=== PATIENT | male | born 1965 | race African-American/Black ===

== ENCOUNTER 2022-05-07 23:17 | Inpatient (IN) | payer OTHER ==
[~2022-05-07] VITALS: Ht 172.7 cm; Wt 90.7 kg
[2022-05-08] MEDS ORDERED: ONDANSETRON HCL/PF 4 MG/2 ML VIAL IVP ONE
[2022-05-08] MEDS ORDERED: VANCOMYCIN 1 GM in IV D5W 250 ML IV ONE ×2
[2022-05-08] MEDS ORDERED: IV NS 0.9% 1,000 ML BAG IV ONE
[2022-05-08] MEDS ORDERED: MORPHINE SULFATE INJ 2 MG/ML DISP.SYRIN IV ONE
[2022-05-08] MEDS ORDERED: ONDANSETRON HCL/PF 4 MG/2 ML VIAL ONE (00:07)
[2022-05-08] MEDS ORDERED: MORPHINE SULFATE INJ 4 MG/ML DISP.SYRIN ONE (00:07)
[2022-05-08] MEDS ORDERED: VANCOMYCIN 1 GM VIAL ONE (00:07)
--- NOTE | 2022-05-08 00:13 | NUR ---
BIBS FOR C/O L ELBOW PAIN AND SWELLING S/P LACERATION ON 05/02. PT STATES OVER THE PAST FEW DAYS HE HAS NOTICED PAIN AND SWELLING WAS WORSTENING BUT THOUGHT IT WOULD IMPROVE ON ITS OWN. ENDORSES 02/10 PAIN. ALSO REPORTS FEVER/CHILLS, AFEBRIOLE AT TRIAGE. PT PLACED ON MONITOR AND V/S WNL.
--- NOTE | 2022-05-08 00:25 | NUR ---
22g iv started at . blood collected and sent to lab
--- NOTE | 2022-05-08 00:38 | NUR ---
lashaun sent to lab
[2022-05-08 00:57] LABS: BASOPHILS # (AUTO) 0.1 K/uL (0.0-0.2); BASOPHILS % (AUTO) 0.4 % (0.0-2.0); EOSINOPHILS % (AUTO) 1.5 % (0.0-6.0); HEMATOCRIT 47 % (39-51); HEMOGLOBIN 15.7 g/dL (13.5-17.5); LYMPHOCYTES # (AUTO) 1.5 K/uL (0.8-4.8); MEAN CORPUSCULAR HGB CONC 33 g/dl (31.0-36.0); MEAN CORPUSCULAR VOLUME 93 fL (80-96); MONOCYTES % (AUTO) 6.2 % (2.0-12.0); NEUTROPHILS # (AUTO) 12.5 K/uL (1.8-8.9); NEUTROPHILS % (AUTO) 81.9 % (43.0-81.0); PLATELET COUNT (AUTO) 369 K/uL (150-450); RED BLOOD CELL COUNT(AUTO) 5.04 MIL/uL (4.5-6.0); WHITE BLOOD COUNT (AUTO) 15.3 K/uL (4.3-11.0)
[2022-05-08 01:23] LABS: ALANINE AMINOTRANSFERASE 46 U/L (12-78); ALBUMIN 3.5 g/dL (3.4-5.0); ALKALINE PHOSPHATASE 126 U/L (46-116); ASPARTATE AMINOTRANSFERASE 34 U/L (15-37); BILIRUBIN,DIRECT 0.1 mg/dL (0.0-0.2); BILIRUBIN,TOTAL 0.5 mg/dL (0.2-1.0); CALCIUM, SERUM 9.4 mg/dL (8.5-10.1); CARBON DIOXIDE 26 mmol/L (21-32); CHLORIDE 99 mmol/L (98-107); GLUCOSE 103 mg/dL (74-106); LIPASE 254 U/L (73-393); SODIUM SERUM 133 mmol/L (136-145); TOTAL PROTEIN, SERUM 8.6 g/dL (6.4-8.2); UREA NITROGEN, BLOOD 15 mg/dL (7-18)
--- NOTE | 2022-05-08 02:18 | NUR ---
SPOKE WITH LOOM STARTERCARMITA FOR CLINICALS.
[2022-05-08] MEDS ORDERED: MAG HYDROX/AL HYDROX/SIMETH 30 ML UDC PO PRN (02:30)
[2022-05-08] MEDS ORDERED: MORPHINE SULFATE INJ 2 MG/ML DISP.SYRIN IV PRN (02:30)
[2022-05-08] MEDS ORDERED: ONDANSETRON HCL/PF 4 MG/2 ML VIAL IVP PRN (02:30)
[2022-05-08] MEDS ORDERED: MAGNESIUM HYDROXIDE 30 ML UDC PO PRN (02:30)
[2022-05-08] MEDS ORDERED: ACETAMINOPHEN 325 MG TABLET PO PRN (02:30)
[2022-05-08] MEDS ORDERED: Z GUARD REMEDY 4 OZ OINT TP PRN (02:30)
[2022-05-08] MEDS ORDERED: ZOLPIDEM TARTRATE 5 MG TABLET PO PRN (02:30)
--- NOTE | 2022-05-08 05:48 | NUR ---
IV LINE GOT P[ULLED OUT. 20G IV STARTED AT [facility].
[2022-05-08] MEDS ORDERED: MORPHINE SULFATE INJ 2 MG/ML DISP.SYRIN ONE (05:49)
[2022-05-08] MEDS: PANTOPRAZOLE 40 MG TABLET.DR PO SCH (07:32)
[2022-05-08] MEDS ORDERED: PANTOPRAZOLE 40 MG TABLET.DR PO ONE (07:32)
--- NOTE | 2022-05-08 08:35 | NUR ---
ROOM 325-1
--- NOTE | 2022-05-08 08:46 | NUR ---
PT REPORT GIVEN TO MANUEL RADFORD
--- NOTE | 2022-05-08 09:49 | NUR ---
PT TRANSFERRED TO UNIT VIA GURNEY. WARM HANDOFF GIVEN TO RN ASSIGNED.
[2022-05-08 10:00] VITALS: BP 144/75
[2022-05-08] MEDS: VANCOMYCIN 1.25 GM in IV D5W 250 ML IV SCH ×2 (11:31→21:49)
[2022-05-08] MEDS: ENOXAPARIN SODIUM 40 MG/0.4 ML DISP.SYRIN SQ SCH (11:45)
--- NOTE | 2022-05-08 12:00 | NUR ---
MS BUILDINGS AND GROUNDS SUPERVISOR NOTES PATIENT ADMITTED FROM HOME WITH C/O OF LFT ELBOW PAIN AND DX OF CELLULITIS , ALERT AND ORIENTED X 4 AND ABLE TO MAKE NEEDS KNOWN , CONTINENT BOTH BOWEL AND BLADDER , IV ACCESS ON LEFT AC G20 SL PATENT AND INTACT , LOVENOX GIVEN ORDERED , VANCOMYCIN GIVEN ORDERED , NO SOB OR DISTRESS NOTED , V/S TAKEN AND RECORDED BP 144//75 , P 101/ TEMP 98.2, O2 SAT 98 % . ROOM AIR AND NO SOB OR DISTRESS NOTED , BODY ASSESSMENT DONE AND PHOTS TAKEN WITH LEFT ELBOW WOUND CELLULITIS AND RIGHT KNEE WOUND DRY SCAB , SIDERAILS UP X 2 , CALL LIGHT WITHIN REACH AND SAFETY MEASURES PROVIDED . WILL CONTINUE TO MONITOR .
[2022-05-08] MEDS ORDERED: IV NS 0.9% 1,000 ML IV PRN (13:30)
[2022-05-08 16:00] VITALS: BP 139/71
--- NOTE | 2022-05-08 19:00 | NUR ---
RN CLOSING NOTES ENODRSED TO NEXT SHIFT , ALL DUE MEDS GIVEN ORDERED , NO SOB OR DISTRESS NOTED , NO C/O OF PAIN AND DISCOMFORT , ALL NEEDS ATTENDED
--- NOTE | 2022-05-08 19:35 | NUR ---
MS RN NOTES RECEIVED REPORT FROM PRABHAKAR JACKSON,PATIENT ADMITTED TODAY FOR CELLULITIS LEFT ELBOW.A/O X4,BREATHING NORMAL,NOT IN ANY FORM OF DISTRESS.SALINE LEFT AC INTACT AND PATENT.AMBULATE WITH STEADY GAIT.CALL LIGHT IN REACH,NEEDS ANTICIPATED.
[2022-05-08 20:00] VITALS: BP 139/72
--- NOTE | 2022-05-08 21:00 | NUR ---
MS RN NOTES ID CONSULT SEEN BY MARIYA MCQUEEN FINISHER CARD TENDER,SUGGESTING TO PUT NEW IV LINE ON RIGHT ARM.LEFT ARM IS SWOLLEN DUE TO INFECTED ELBOW.INFORMED MARIYA THAT IT WAS INSERTED IN ER, THAT PATIENT SAYS ,SALINE LOCK WAS PUT FIRST ON RIGHT ARM BUT IT WAS SO PAINFUL AND ASKED THE ER STAFF TO TAKE IT OUT AND PUT ONE ON LEFT ARM,WHICH THEY DID ON LEFT AC.
[2022-05-08] MEDS: HYDROCODONE/APAP 5/325MG TABLET PO PRN (21:57)
--- NOTE | 2022-05-08 21:57 | NUR ---
MS RN NOTES C/O PAIN 6/10 ON PAIN SCALE ON LEFT ELBOW.NORCO5/325MG,1 TAB PO GIVEN ORDERED.VITAL SIGNS STABLE.
[2022-05-08] MEDS: LEVOFLOXACIN (250MG) 250 MG TABLET PO SCH (22:13)
--- NOTE | 2022-05-09 06:57 | NUR ---
MS RN NOTES ON BED SLEEPING.PAIN MANAGEMENT EFFECTIVE.IVF INFUSING WELL ON LEFT AC,BRP,IN NO ACUTE DISTRESS.
[2022-05-09] MEDS: PANTOPRAZOLE 40 MG TABLET.DR PO SCH (07:41)
--- NOTE | 2022-05-09 07:45 | NUR ---
WOUND CARE CONSULT: PT PRESENTS WITH TENDER ESCHAR TO LEFT ELBOW WITH SMALL AMOUNT OF SEROPURULENT DRAINAGE AND SURROUNDING ERYTHEMA,PRESENT ON ADMISSION. RECOMMEND SURGICAL CONSULT. DR ESPAÑA CALLED. RECOMMENDATION MADE FOR SKIN PROTECTION. DISCUSSED WITH NURSING STAFF. MD IN AGREEMENT WITH PLAN OF CARE.
--- NOTE | 2022-05-09 08:14 | NUR ---
RN NOTES RECEIVED PATIENT IN BED, CONSCIOUS AND COHERENT. NO SIGNS OF . HOB ELEVATED. SEE AND ASSESSED CELLULITIS AT LEFT ELBOW,; . WITH IV LINE AT LEFT BRACHIAL ARTERY #20G RUNNING AT 75ML/HR. Addendum: 05/09/22 at 0822 by Gela Crum RN RN NOTES RECEIVED PATIENT IN BED, CONSCIOUS AND COHERENT. NO SIGNS OF . HOB ELEVATED. SEE AND ASSESSED CELLULITIS AT LEFT ELBOW,; . WITH IV LINE AT LEFT BRACHIAL ARTERY #20G RUNNING AT 75ML/HR. WITH STABLE VITAL SIGNS. AWAITING FOR WOUND CONSULT WILL CONTINUE TO MONITOR
[2022-05-09] MEDS: ENOXAPARIN SODIUM 40 MG/0.4 ML DISP.SYRIN SQ SCH (08:55)
[2022-05-09] MEDS: LINEZOLID 600 MG TABLET PO SCH ×2 (08:55→20:54)
[2022-05-09] MEDS: LEVOFLOXACIN (250MG) 250 MG TABLET PO SCH (08:55)
[2022-05-09 09:08] VITALS: BP 118/75
[2022-05-09 09:52] LABS: BASOPHILS % (AUTO) 0.4 % (0.0-2.0); EOSINOPHILS % (AUTO) 2.5 % (0.0-6.0); HEMATOCRIT 41 % (39-51); HEMOGLOBIN 13.9 g/dL (13.5-17.5); LYMPHOCYTES # (AUTO) 0.9 K/uL (0.8-4.8); LYMPHOCYTES % (AUTO) 9.3 % (20.0-44.0); MEAN CORPUSCULAR HGB CONC 34 g/dl (31.0-36.0); MEAN CORPUSCULAR VOLUME 93 fL (80-96); MONOCYTES # (AUTO) 0.5 K/uL (0.1-1.30); MONOCYTES % (AUTO) 5.1 % (2.0-12.0); NEUTROPHILS # (AUTO) 7.9 K/uL (1.8-8.9); NEUTROPHILS % (AUTO) 82.7 % (43.0-81.0); PLATELET COUNT (AUTO) 316 K/uL (150-450); RED BLOOD CELL COUNT(AUTO) 4.41 MIL/uL (4.5-6.0); WHITE BLOOD COUNT (AUTO) 9.5 K/uL (4.3-11.0)
[2022-05-09 10:11] LABS: CALCIUM, SERUM 8.5 mg/dL (8.5-10.1); CREATININE 1.1 mg/dL (0.6-1.3); MAGNESIUM 2.2 mg/dL (1.8-2.4); PHOSPHORUS 2.3 mg/dL (2.5-4.9); POTASSIUM 3.9 mmol/L (3.5-5.1)
--- NOTE | 2022-05-09 14:00 | NUR ---
RN NOTES FOR CT SCAN WITH CONTRAST OF THE UPPER EXTREMITIES WITH CONSENT SIGNED AND VERIFY. INSERTED HEPLOCK AT LEFT ARM. CT SCAN DONE AWAITING RESULT
[2022-05-09] MEDS ORDERED: IOHEXOL-300 100 ML VIAL IV ONE (15:16)
[2022-05-09] MEDS ORDERED: CT SWABBABLE VALVE TRANS SET 1 EA INFUS.SET MC ONE (15:17)
[2022-05-09] MEDS ORDERED: IV NS 0.9% 250 ML IV ONE (15:17)
[2022-05-09] MEDS ORDERED: K PHOS NEUTRAL 250 MG TABLET PO ONE (15:30)
[2022-05-09] MEDS: DAKINS QUARTER STRENGTH (0.125%) 480 ML BOTTLE TOP SCH (16:13)
[2022-05-09 16:18] VITALS: BP 140/76
--- NOTE | 2022-05-09 18:16 | NUR ---
RN CLOSING NOTES PATIENT IS AWAKE AND COHERENT. WITH IV LINE AT LEFT AC #20G WITH NS 75 ML/HR AND WITH HEPLOCK AT RIGHT WRIST. ALL ORDERED PROCEDURES DONE. ALL DUE MEDICATIONS GIVEN AND RECORDED. SAFETY PRECAUTIONS MAINTAINED. ALL NEEDS ATTENDED. ENDORSED TO DOCUMENT PROCESSING SPECIALIST FOR STEPHANIE.
--- NOTE | 2022-05-09 19:45 | NUR ---
MS RN NOTES RECEIVED LYING BED A/O X4,BREATHING NORMAL,NOT IN ANY FORM OF DISTRESS.LEFT ELBOW SWOLLEN AND TENDER TO THE TOUCH.SALINE LOCK LEFT AC REMOVED.NOTES ANOTHER SALINE LOCK ON RIGHT WRIST #20.IVF RE STARTED.DRESSING APPLIED TO LEFT ELBOW WOUND WRAPPED WITH KERLIX,ELEVATED ON PILLOW.AMBULATE TO THE TOILET WITH STEADY GAIT.CALL LIGHT IN REACH,NEEDS ANTICIPATED.
[2022-05-09 20:00] VITALS: BP 125/62
--- NOTE | 2022-05-09 21:00 | NUR ---
MS RN NOTES IV SITE RIGHT WRIST GOT INFILTRATED.REMOVED PER PATIENT REQUEST.ADVISED THAT HE NEEDS NEW IV ACCESS,SAYS TO PUT LATER.HE WANTS TO SLEEP.
--- NOTE | 2022-05-09 23:29 | NUR ---
MS RN NOTES OFFERED TO HAVE NEW IV ACCESS,PATIENT REFUSE.HOSPITALIST EMILIA MADE AWARE, OKAY NO IV ACCESS SINCE PATIENT DRINKS WELL,ATE WELL,NO IV ABX,NOTED AND CARRIED OUT.
--- NOTE | 2022-05-10 06:41 | NUR ---
MS RN NOTES LYING ON BED.SLEEP WELL,NO IV ACCESS,HOSPITALIST AWARE,IN NO ACUTE DISTRESS.
[2022-05-10 07:09] LABS: CALCIUM, SERUM 8.6 mg/dL (8.5-10.1); CREATININE 0.9 mg/dL (0.6-1.3); POTASSIUM 3.9 mmol/L (3.5-5.1)
--- NOTE | 2022-05-10 07:44 | NUR ---
RN OPENING NOTES: RECEIVED PT ASLEEP BUT EASILY ROUSED. A/O X4, AND ABLE TO MAKE NEEDS KNOWN. ON RA TOLERATING WELL, NO S/S OF SOB AND ACUTE DISTRESS NOTED, DENIES PAIN AT THIS TIME. PT HAS NOT IV ACCESS, PER PM RN, PT C/O OF DISCOMFORT ON PREVIOUS IV SITES, REFUSED IV REINSERTION DURING PM, MD AWARE AND OK SINCE PT'S MEDS ARE PO AND ABLE TO TAKE FOOD AND H20 PO ADEQUATELY. SAFETY MEASURES IN PLACE, CALL LIGHT AND TABLE WITHIN REACH WILL CONT WITH PLAN OF CARE DURING SHIFT.
[2022-05-10 08:00] VITALS: BP 118/62
[2022-05-10] MEDS: ENOXAPARIN SODIUM 40 MG/0.4 ML DISP.SYRIN SQ SCH (08:18)
[2022-05-10] MEDS: LINEZOLID 600 MG TABLET PO SCH ×2 (08:24→20:31)
[2022-05-10] MEDS: PANTOPRAZOLE 40 MG TABLET.DR PO SCH (08:24)
[2022-05-10] MEDS: DAKINS QUARTER STRENGTH (0.125%) 480 ML BOTTLE TOP SCH (09:04)
[2022-05-10 12:54] LABS: BASOPHILS % (AUTO) 0.6 % (0.0-2.0); EOSINOPHILS % (AUTO) 3.5 % (0.0-6.0); HEMATOCRIT 42 % (39-51); HEMOGLOBIN 14.1 g/dL (13.5-17.5); LYMPHOCYTES # (AUTO) 1.1 K/uL (0.8-4.8); LYMPHOCYTES % (AUTO) 13.1 % (20.0-44.0); MEAN CORPUSCULAR HGB CONC 34 g/dl (31.0-36.0); MEAN CORPUSCULAR VOLUME 93 fL (80-96); MONOCYTES # (AUTO) 0.6 K/uL (0.1-1.30); MONOCYTES % (AUTO) 6.6 % (2.0-12.0); NEUTROPHILS # (AUTO) 6.4 K/uL (1.8-8.9); NEUTROPHILS % (AUTO) 76.2 % (43.0-81.0); PLATELET COUNT (AUTO) 368 K/uL (150-450); RED BLOOD CELL COUNT(AUTO) 4.47 MIL/uL (4.5-6.0); WHITE BLOOD COUNT (AUTO) 8.4 K/uL (4.3-11.0)
[2022-05-10 16:00] VITALS: BP 139/79
--- NOTE | 2022-05-10 18:24 | NUR ---
RN CLOSING NOTES: PT ASLEEP BUT EASILY ROUSED. A/O X4, AND ABLE TO MAKE NEEDS KNOWN. ON RA TOLERATING WELL, NO S/S OF SOB OR ACUTE DISTRESS NOTED, DENIES PAIN AT THIS TIME. PT HAS NO IV ACCESS, PER PM RN, PT C/O OF DISCOMFORT ON PREVIOUS IV SITES, REFUSED IV REINSERTION DURING SHIFT, MD AWARE AND OK SINCE PT'S MEDS ARE PO AND ABLE TO TAKE FOOD AND FLUIDS PO ADEQUATELY. WOUND CARE DONE, MEDS GIVEN, KEPT PT CLEAN, DRY AND COMFORTABLE. SAFETY MEASURES IN PLACE, CALL LIGHT AND TABLE WITHIN REACH, WILL ENDORSE TO PM SHIFT.
--- NOTE | 2022-05-10 19:31 | NUR ---
MS RN NOTES RECEIVED ON BED SLEEPING.BREATHING NORMAL,NO IV ACCESS,HOSPITALIST AWARE.LEFT ELBOW DRESSING INTACT AND DRY.ENCOURAGED TO ELEVATE ON PILLOWS.AMBULATE WITH STEADY GAIT.CALL LIGHT IN REACH,NEEDS ANTICIPATED.
[2022-05-10 20:00] VITALS: BP_SYST 134; BP_SYST 136; BP_DIAS 79
[2022-05-10] MEDS: LEVOFLOXACIN (250MG) 250 MG TABLET PO SCH (21:23)
--- NOTE | 2022-05-11 06:27 | NUR ---
MS RN NOTES SLEEP WELL AT NIGHT,NO COMPLAINTS OF PAIN,WARM MOIST COMPRESS TO LEFT ELBOW INITIATED WITH ORDER.IN NO ACUTE DISTRESS.CALL LIGHT IN REACH,NEEDS ATTENDED.
[2022-05-11 06:31] LABS: BASOPHILS % (AUTO) 0.3 % (0.0-2.0); EOSINOPHILS % (AUTO) 2.8 % (0.0-6.0); HEMATOCRIT 41 % (39-51); HEMOGLOBIN 13.8 g/dL (13.5-17.5); LYMPHOCYTES # (AUTO) 1.2 K/uL (0.8-4.8); LYMPHOCYTES % (AUTO) 14.6 % (20.0-44.0); MEAN CORPUSCULAR HGB CONC 34 g/dl (31.0-36.0); MEAN CORPUSCULAR VOLUME 93 fL (80-96); MONOCYTES # (AUTO) 0.6 K/uL (0.1-1.30); MONOCYTES % (AUTO) 7.6 % (2.0-12.0); NEUTROPHILS # (AUTO) 6.3 K/uL (1.8-8.9); NEUTROPHILS % (AUTO) 74.7 % (43.0-81.0); PLATELET COUNT (AUTO) 365 K/uL (150-450); RED BLOOD CELL COUNT(AUTO) 4.46 MIL/uL (4.5-6.0); WHITE BLOOD COUNT (AUTO) 8.4 K/uL (4.3-11.0)
[2022-05-11 07:00] LABS: CALCIUM, SERUM 8.7 mg/dL (8.5-10.1); MAGNESIUM 2.3 mg/dL (1.8-2.4); PHOSPHORUS 3.9 mg/dL (2.5-4.9); POTASSIUM 4.3 mmol/L (3.5-5.1)
[2022-05-11 08:00] VITALS: BP 134/86
[2022-05-11] MEDS: PANTOPRAZOLE 40 MG TABLET.DR PO SCH (08:08)
[2022-05-11] MEDS: LEVOFLOXACIN (250MG) 250 MG TABLET PO SCH (08:08)
[2022-05-11] MEDS: LINEZOLID 600 MG TABLET PO SCH ×2 (08:08→21:18)
[2022-05-11] MEDS: ENOXAPARIN SODIUM 40 MG/0.4 ML DISP.SYRIN SQ SCH (08:10)
[2022-05-11] MEDS: DAKINS QUARTER STRENGTH (0.125%) 480 ML BOTTLE TOP SCH (08:11)
[2022-05-11 16:00] VITALS: BP 133/80
--- NOTE | 2022-05-11 19:01 | NUR ---
RN CLOSING NOTES: PT ASLEEP BUT EASILY ROUSED. A/O X4, AND ABLE TO MAKE NEEDS KNOWN. ON RA TOLERATING WELL, NO S/S OF SOB AND ACUTE DISTRESS NOTED, DENIES PAIN AT THIS TIME. PT HAS NO IV ACCESS, PER PM RN, PT C/O OF DISCOMFORT ON PREVIOUS IV SITES, REFUSED IV REINSERTION DURING SHIFT. MD AWARE AND OK SINCE PT'S MEDS ARE PO AND ABLE TO TAKE FOOD AND H20 PO ADEQUATELY. WARM COMPRESSES APPLIED TO ELBOW PER MD ORDER. WOUND CARE DONE, PHOTO TAKEN AND ATTACHED TO CHART. SAFETY MEASURES IN PLACE, CALL LIGHT AND TABLE WITHIN REACH, WILL ENDORSE TO PM SHIFT.
--- NOTE | 2022-05-11 19:50 | NUR ---
RN OPENING NOTE PATIENT AWAKE IN BED. A/OX4. NO S/S OF DISTRESS, BREATHING WITHOUT DIFFICULTY ON ROOM AIR. NO IV ACCESS PATIENT CONTINUES TO DECLINE HAVING A NEW IV INSERTED. WILL ENCOURAGE PATIENT TO HOPEFULLY HAVE NEW IV ACCESS BY END OF SHIFT. SAFETY MEASURES IN PLACE: BED LOCKED AND AT LOWEST POSITION, RAILS UP X2, CALL SHOOK WITHIN REACH. WILL CONTINUE TO MONITOR PATIENT.
[2022-05-11 20:00] VITALS: BP 119/78
--- NOTE | 2022-05-12 06:57 | NUR ---
RN CLOSING NOTE PATIENT ASLEEP IN BED. A/OX4. NO S/S OF DISTRESS, BREATHING WITHOUT DIFFICULTY ON ROOM AIR. NO IV ACCESS NOTED BEFORE. SAFETY MEASURES IN PLACE: BED LOCKED AND AT LOWEST POSITION, RAILS UP X2, CALL SHOOK WITHIN REACH. WILL ENDORSE TO NEXT SHIFT.
--- NOTE | 2022-05-12 07:30 | NUR ---
MS RN OPENING NOTES: RECEIVED PATIENT ON BED AWAKE AND A/O X4. ON ROOM AIR TOLERATING WELL. NO SOB NOTED. NOT IN DISTRESS. ABLE TO MAKE NEEDS KNOWN. WITH NO COMPLAINTS OF PAIN AT THIS TIME. WITH NO IV ACCESS, PATIENT REFUSED FOR IV REINSERTION. SAFETY MEASURES IN PLACED. CALL LIGHT WITHIN REACH. BED ON LOWEST LOCKED POSITION, SIDE RAILS UP X2. WILL CONTINUE TO MONITOR.
[2022-05-12 08:11] VITALS: BP 124/79
[2022-05-12] MEDS: ENOXAPARIN SODIUM 40 MG/0.4 ML DISP.SYRIN SQ SCH (08:42)
[2022-05-12] MEDS: LINEZOLID 600 MG TABLET PO SCH ×2 (08:45→21:29)
[2022-05-12] MEDS: PANTOPRAZOLE 40 MG TABLET.DR PO SCH (08:45)
[2022-05-12] MEDS: DAKINS QUARTER STRENGTH (0.125%) 480 ML BOTTLE TOP SCH (08:48)
[2022-05-12] MEDS ORDERED: LIDOCAINE 1%-EPI 1:100,000 20 ML VIAL TP ONE (10:00)
[2022-05-12] MEDS ORDERED: SILVER NITRATE APPLICATOR 1 EA BOX TP SCH (10:00)
[2022-05-12] MEDS ORDERED: LINE600T13 PO (11:59)
[2022-05-12] MEDS ORDERED: LEVO250T59 PO (11:59)
--- NOTE | 2022-05-12 12:03 | NUR ---
SS Consult: SS consult requested for homelessness. The pt. is a 56-year-old Black male pt. who was admitted to [facility] due to sepsis per EMR. Upon SS consult, the pt. is Alert & Oriented x 4 and makes good eye contact. The pt. appears well-groomed. Pt. has euthymic mood & affect. Pt.s speech is clear and thought process is WNL. Pt. remained calm & cooperative throughout interview. Pt. denies SI/HI and states denies hallucinations. SW explored pt.s living situation. Patient states he was last staying at a friends house but is unsure if he can return. Per pt. he is currently experiencing homelessness and requested resources for rapid rehousing. SW provided pt. with winter detention resources and referred [facility] to [facility] the [facility] for reh[facility]. Pt. thanked [facility] and stated he will follow up with resources. SW explored pt.s drug & ETOH use. Pt. denies any drug or alcohol use. The pt. stated he is ambulatory and independent with all his ADLs. Plan: SW provided pt. with the following homeless resources and pt. accepted them Pt. was agreeable to using homeless resources to find detention placement. Pt. signed homeless waiver and it was placed in the pt.s chart. Resources provided include: Winter Residential list : [facility]; [facility] Adult WSP site; [facility] Adult WSP site; and [facility] Adult WSP site; instruction to call 211 for availability. Year-round shelters: [facility] [address] [place], [place] [phone] ; [facility] [address] [place] [address]; [facility] [address] [facility] [place] [address] Hygiene: [facility]: [address] [place] [address] [place] ; [facility] [address] [facility] ; [facility] [address] . Food Resources: [place] [facility] at [facility]- [address]; Meet Each Need with Dignity ([facility]) [address] [place]; [facility] [address] [facility]; [facility] [address]. Mental Health resources provided: [facility] [address] [place], [place] [id number] ; [facility] [address] [facility] [address], [place] [address] ; [facility] [address] [facility] [address] [place], [place] [id number] ; [facility] [address] [place], [place] [phone] Healthcare Clinics: [facility] [address] [facility], [address] [place]. [place] ; [facility] [address] [place] [address]; [facility] [address] [facility] [place] [address] [phone] Counseling--Outpatient [facility] [address], [place] [address] (Specializes in in-depth psychotherapy for emotional distress: anxiety, depression, interpersonal conflicts, life transitions, childhood abuse) [facility] [address] [place] [address] (Assist with solving problem marital difficulties, separation & divorce, aging parents, & grief, chronic & terminal illness) [facility] [address] [place] [address] (Deal with loss & grief, anxiety, marital difficulties) Homebound/Mental Health Services [address] [facility], [address] [place], [place] [phone] (Provide in-home mental services to people who are incapable of leaving their homes) [facility] Senior [facility] [address] [place] [address] [facility] [address] [facility] [place] [address] PSYCHIATRIC OUTPATIENT SERVICES [facility] Partial Hospitalization and Intensive Outpatient Program (Managed Care and [place] Only)[address] [facility] [phone] [facility] Partial Hospitalization and Outpatient [id number] [place], [place] [phone] [facility] [place] [address] [facility] [place], [place] [phone] [facility] Partial Hospitalization and Outpatient [id number] eliThomas B. Finan Centeromaira, [phone] Substance Abuse resources provided included: [facility] Substance Abuse Self-Helpline ([facility]) ; [facility] [address] [facility]. [place] [phone] ; [facility] [address] [facility] [place] [address] ; [facility] [address] [facility] [address] ; [facility] [phone] ; [facility] [address] [facility] [address] ; [facility] [address] [facility] [address] ; [facility] Substance Abuse Helpline([facility])-[facility] ; [facility] ; [facility] [place]; [facility]; [facility] [place]; [facility] [address] Puentesomaira; [facility]; [facility] Billie; [facility] Misael; [facility]. Susana Saxena; Alcoholics Anonymous -[facility]; Mireille ; Marijuana Anonymous [facility]; Narcotics Anonymous www.na.org;
[2022-05-12] MEDS: HYDROCODONE/APAP 5/325MG TABLET PO PRN (15:49)
[2022-05-12 15:57] VITALS: BP 130/77
--- NOTE | 2022-05-12 18:20 | NUR ---
MS RN CLOSING NOTES: PATIENT ON BED RESTING AND A/O X4. ON ROOM AIR TOLERATING WELL. NO SOB NOTED. NOT IN DISTRESS. ABLE TO MAKE NEEDS KNOWN. WITH NO COMPLAINTS OF PAIN AT THIS TIME. WITH NO IV ACCESS, PATIENT REFUSED FOR IV REINSERTION. DUE MEDS GIVEN. SAFETY MEASURES IN PLACED. CALL LIGHT WITHIN REACH. BED ON LOWEST LOCKED POSITION, SIDE RAILS UP X2. WILL ENDORSE TO NEXT SHIFT FOR STEPHANIE.
--- NOTE | 2022-05-12 19:37 | NUR ---
RN OPENING NOTE PATIENT AWAKE IN BED. A/OX4. NO S/S OF DISTRESS, BREATHING WITHOUT DIFFICULTY ON ROOM AIR. NO IV ACCESS; MD AWARE. SAFETY MEASURES IN PLACE: BED LOCKED IN PLACE AND AT LOWEST POSITION, RAILS UP X2, CALL SHOOK WITHIN REACH. WILL CONTINUE TO MONITOR PATIENT.
[2022-05-12 20:00] VITALS: BP 139/80
[2022-05-12] MEDS: LEVOFLOXACIN (250MG) 250 MG TABLET PO SCH (21:29)
--- NOTE | 2022-05-13 06:55 | NUR ---
RN CLOSING NOTE PATIENT ASLEEP IN BED. A/OX4. NO S/S OF DISTRESS, BREATHING WITHOUT DIFFICULTY ON ROOM AIR. NO IV ACCESS. SAFETY MEASURES IN PLACE: BED LOCKED AND AT LOWEST POSITION, RAILS UP X2, CALL SHOOK WITHIN REACH. WILL ENDORSE TO NEXT SHIFT FOR STEPHANIE.
--- NOTE | 2022-05-13 07:30 | NUR ---
RN OPENING NOTE PATIENT RECEIVED ASLEEP IN BED. A/OX4. NO S/S OF DISTRESS, BREATHING WITHOUT DIFFICULTY ON ROOM AIR. NO IV ACCESS; MD AWARE. SAFETY MEASURES IN PLACE: BED LOCKED IN PLACE AND AT LOWEST POSITION, RAILS UP X2, CALL SHOOK WITHIN REACH. WILL CONTINUE TO MONITOR PATIENT.
[2022-05-13 08:00] VITALS: BP 135/85
[2022-05-13] MEDS: LINEZOLID 600 MG TABLET PO SCH (08:41)
[2022-05-13] MEDS: PANTOPRAZOLE 40 MG TABLET.DR PO SCH (08:41)
[2022-05-13] MEDS: ENOXAPARIN SODIUM 40 MG/0.4 ML DISP.SYRIN SQ SCH (09:02)
[2022-05-13] MEDS: DAKINS QUARTER STRENGTH (0.125%) 480 ML BOTTLE TOP SCH (09:04)
--- NOTE | 2022-05-13 09:51 | NUR ---
RN NOTE CONSENT FOR PROCEDURE ALREADY SIGNED YESTERDAY 05/12/22 AND IN CHART Addendum: 05/13/22 at 1253 by BAYRON KAISER RN Amended: Links added.
[2022-05-13 16:00] VITALS: BP 127/77
== END 2022-05-13 18:27 | disposition home or self-care (01) | DRG 710 ==
LOC: ER 23:19 → TRANSITION 05-08 05:15 → MED 05-08 08:54
PROVIDERS: ADMIT Nurse Practitioner Acute Care; ATTEND Registered Nurse
PROC: 0KB Muscles, Excision (ICD-10-PCS; principal; 2022-05-12)
DX: A41.9 Sepsis, unspecified organism (principal); E87.20 Acidosis, unspecified; E87.1 Hypo-osmolality and hyponatremia; L03.114 Cellulitis of left upper limb; J15.9 Unspecified bacterial pneumonia; E86.1 Hypovolemia; Z20.822 Contact with and (suspected) exposure to COVID-19; J45.909 Unspecified asthma, uncomplicated; I10 Essential (primary) hypertension; R73.03 Prediabetes; Z87.891 Personal history of nicotine dependence; Z91.199 Patient's noncompliance with other medical treatment and regimen due to unspecified reason; M70.22 Olecranon bursitis, left elbow; L02.414 Cutaneous abscess of left upper limb; E66.9 Obesity, unspecified; Z68.30 Body mass index [BMI] 30.0-30.9, adult; Z71.3 Dietary counseling and surveillance; M54.50 Low back pain, unspecified; S51.012A Laceration without foreign body of left elbow, initial encounter; W19.XXXA Unspecified fall, initial encounter; Y93.9 Activity, unspecified; Y92.89 Other specified places as the place of occurrence of the external cause
CPT/HCPCS: 36415; 71045-TC; 72110-TC; 73080-TC; 73202-TC; 80048-TC; 80076-TC; 80202-TC; 83605-TC; 83690-TC; 83735-TC; 84100-TC; 85025-TC; 85652-TC; 85730-TC; 86140-TC; 87040-TC; 87081-TC; 93971-TC; A6407; C9803; G0378; J1650; J2270; J2405; J3370; J3490; J7030; J7050; J7060; Q9967

== ENCOUNTER 2022-09-17 09:38 | Emergency (ER) | payer OTHER ==
[~2022-09-17] VITALS: Ht 172.7 cm; Wt 90.7 kg
[~2022-09-17 09:38] MED LIST: LEVO250T59 PO; LINE600T13 PO
--- NOTE | 2022-09-17 10:58 | NUR ---
discharged patient to long-term accompanied by [employer] in no distress.
== END 2022-09-17 10:58 ==
LOC: ER 09:45
DX: Z04.1 Encounter for examination and observation following transport accident (principal); V89.2XXA Person injured in unspecified motor-vehicle accident, traffic, initial encounter; Y93.89 Activity, other specified; Y92.89 Other specified places as the place of occurrence of the external cause; Y99.8 Other external cause status